=== PATIENT | female | born 1940 | race Caucasian/White ===

== ENCOUNTER 2018-12-14 15:40 | Emergency (ER) | payer MEDICARE, BC ==
[~2018-12-14] VITALS: Ht 165.1 cm; Wt 72.1 kg
[~2018-12-14 15:40] MED LIST: CHOL50009 PO; MULT1CAP20 PO; OLME20TA20 PO; UBID100C24 PO
[2018-12-14 16:03] VITALS: BP 156/86; PULSE 89; RESP 18; Ht 165.1 cm; Wt 72.1 kg
[2018-12-14] MEDS ORDERED: PHENYLephrine 1% 15 ML NAS SPRAY NASAL ONE (18:00)
--- NOTE | 2018-12-24 07:03 | ERD ---
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 Bleeding decreases with pressure, +dark blood in pharynx, denies pain, denies dizziness, mild MI. She is not on anticoagulant. Recently discharged from [facility] after having "medical misadventure" with chemo, states she was misdiagnosed with cancer. Case referred to and treated by Dr. Lawrence. ROS All systems reviewed and are negative except as per history of present illness. Medications Home Meds Reported Medications Multivitamins* (Multivitamin*) 1 Udcap Capsule, 1 TAB PO BID, TAB 11/17/14 Ubidecarenone (Coq-10) 100 Mg Capsule, 100 MG PO BID 11/17/14 Cholecalciferol* (Vitamin D*) 5,000 Unit Tablet, 2000 UNIT PO DAILY, TAB 11/17/14 Cholecalciferol* (Vitamin D*) 5,000 Unit Tablet, 5000 UNIT PO DAILY, TAB 11/17/14 Olmesartan Medoxomil (Benicar) 20 Mg Tablet, 20 MG PO PM, TAB 11/17/14 Allergies Allergies: Coded Allergies: ibuprofen (Verified Allergy, Unknown, ANAPHYLACTIC SHOCK, 12/16/18) WITH GENERIC IBUPROFEN PMhx/Soc Hx Miscellaneous Medical Probl: Yes ("misdiagnosed with cancer") Hx Alcohol Use: No Hx Substance Use: No Hx Tobacco Use: No Smoking Status: Never smoker FmHx Family History: No diabetes, No coronary disease, No other Physical Exam Vitals At triage: temp 98.5, pulse 89 bpm, BP 156/86, Resp 18, Ox 98% Physical Exam Const: No acute distress Head: Atraumatic, frontal and maxillary sinus without tenderness Eyes: Normal Conjunctiva, PERRL ENT: Normal External Ears, TM clear, oral mucosa pink without lesions or exudate, dark brown blood noted in back of pharynx Neck: Full range of motion. No meningismus. No lymphadenopathy Resp: Clear to auscultation bilaterally, no wheezing, no rales, no rhonchi, no stridor Cardio: Regular rate and rhythm, no murmurs Abd: Soft, non tender, non distended. Normal bowel sounds Skin: No petechiae or rashes, no bruising, pink, normothermic Back: No midline or flank tenderness Ext: No cyanosis, or edema Neur: Awake and alert Psych: Normal Mood and Affect Results 24 hrs Current Medications Medications Dose Sig/Rebecca Start Time Status Last (Trade) Ordered Route PRN Stop Time Admin Dose Reason Admin 1 spray ONCE ONCE 12/14/18 DC 12/14/18 Phenylephrine NASAL 18:00 17:58 HCl 12/14/18 18:01 ([place]-Synephri ne 1% [place]) Procedures/MDM Pt was evaluated with physical assessment by Dr. Coreas. No active bleeding from Nares. Pt refusing rhino-rocket or cautery. Pt provided with nose clip and Afrin and observation period. Pt remained hemodynamically stable throughout ED course during evaluation period. Multiple attempts made to locate patient. Pt eloped prior to reevaluation. 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 Departure Diagnosis: Primary Impression: Eloped from emergency department Condition: Stable NORIS GUAJARDO NP December 24, 2018 06:59
== END 2018-12-15 02:51 | disposition left against medical advice (07) ==
LOC: FTE 15:40
DX: R04.0 Epistaxis (principal)
CPT/HCPCS: 99282